=== PATIENT | female | born 2000 | race African-American/Black ===

== ENCOUNTER 2024-01-07 07:53 | Emergency (ER) | payer MEDICAID ==
[~2024-01-07] VITALS: Ht 167.6 cm; Wt 64.0 kg
[2024-01-07 07:56] VITALS: BP 127/79; PULSE 99; RESP 20; TEMP 98.2; O2SAT 98
== END 2024-01-07 08:36 | disposition left against medical advice (07) ==
LOC: ER 07:53
DX: F10.129 Alcohol abuse with intoxication, unspecified (principal); Y90.9 Presence of alcohol in blood, level not specified
CPT/HCPCS: 99283